=== PATIENT | female | born 1980 | race Caucasian/White ===

== ENCOUNTER 2017-11-25 12:37 | Emergency (ER) | payer MEDICARE ==
[~2017-11-25] VITALS: Ht 170.2 cm; Wt 94.1 kg
[~2017-11-25 12:37] MED LIST: IMITREX50 MG PO; PRENATAL TABLE1 EAC3 PO; TYLENOL EXTRA500 MG PO; ZANTAC150 MG PO; ZOFRAN4 MG PO
[2017-11-25 14:47] LABS: BASOPHIL (%) 0.3 % (0-1); EOSINOPHIL (%) 0.9 % (0-5); EOSINOPHIL COUNT 0.1 K/uL (0-0.3); HEMATOCRIT 38.2 % (36.0-46.0); HEMOGLOBIN 12.8 G/DL (11.9-15.5); IMMATURE GRANULOCYTE (%) 0.3 % (0.0-0.7); LYMPHOCYTE (%) 11.7 % (15-42); LYMPHOCYTE COUNT 1.2 K/uL (1.0-2.8); MCH 28.7 PG (29.0-34.0); MCHC 33.5 G/DL (30.0-36.0); MCV 85.7 FL (83-99); MONOCYTE (%) 4.7 % (3-12); MONOCYTE COUNT 0.5 K/uL (0-0.8); NEUTROPHIL (%) 82.1 % (45-76); NEUTROPHIL COUNT 8.5 K/uL (1.8-6.4); PLATELET COUNT 299 K/uL (156-360); RBC DIS.WIDTH-CV 12.3 % (11.8-14.6); RBC DIS.WIDTH-SD 38.6 % (39-53); RED BLOOD COUNT 4.46 M/uL (3.80-5.20); WHITE BLOOD COUNT 10.3 K/uL (4.1-10.2)
[2017-11-25 14:53] LABS: CHLORIDE 105 mEq/L (99-109); POTASSIUM 4.4 mEq/L (3.7-5.4); SODIUM 141 mEq/L (136-147)
[2017-11-25 14:55] LABS: GLUCOSE 108 mg/dL (70-99)
[2017-11-25 14:58] LABS: CREATININE 0.9 mg/dL (0.6-1.3); GFR ESTIMATE (CALCULATED) > 59 mL/min/
[2017-11-25 14:59] LABS: UREA NITROGEN (BUN) 10 mg/dL (9-23)
[2017-11-25 15:33] LABS: ERTH.SED.RATE 102 MM/HR (0-20)
[2017-11-25 15:52] LABS: C-REACTIVE PROTEIN 59.8 MG/L (0-10)
[2017-11-25] MEDS ORDERED: MEDROL DOSEPAK4 MG PO (16:27)
[2017-11-25] MEDS ORDERED: ULTRAM50 MG PO (16:27)
[2017-11-25 16:39] VITALS: BP 107/62
[2017-11-26 09:42] LABS: LYME DISEASE SEROLOGY SCREEN NEGATIVE (NEGATIVE)
== END 2017-11-25 16:41 | disposition home or self-care (01) ==
LOC: EME 12:37
PROVIDERS: Physician Assistant
DX: M25.561 Pain in right knee (principal); Z88.5 Allergy status to narcotic agent; Z88.6 Allergy status to analgesic agent
CPT/HCPCS: 73564; 80048; 85025; 85651; 86038; 86140; 86200 90; 86235; 86430; 86618; 99281; 99284